=== PATIENT | female | born 1990 | race African-American/Black ===

== ENCOUNTER 2016-07-31 16:04 | Emergency (ER) | payer SELFPAY ==
[~2016-07-31] VITALS: Ht 157.5 cm; Wt 87.5 kg
[2016-07-31 16:44] LABS: BASOPHILS % (AUTO) 1 % (0-2); EOSINOPHILS # (AUTO) 0.1 10^3uL; EOSINOPHILS % (AUTO) 1 % (0-4); MEAN CORPUSCULAR HEMOGLOBIN 30.5 PG (26.0-34.0); MEAN CORPUSCULAR HGB CONC 34.7 g/dL (31.0-37.0); MEAN CORPUSCULAR VOLUME 88 FL (80-100); MEAN PLATELET VOLUME 9.6 FL (6.0-9.5); MONOCYTES # (AUTO) 0.2 X10^3; MONOCYTES % (AUTO) 5 % (3-11); NEUTROPHILS # (AUTO) 3.2 X10^3; NEUTROPHILS % (AUTO) 71 % (51-67); PLATELET COUNT 328 10^3uL (150-450); WHITE BLOOD COUNT 4.51 10^3uL (4.0-11.0)
[2016-07-31 17:08] LABS: ANION GAP 14.2 MEQ/L (3-15)
[2016-07-31 18:14] VITALS: BP 117/74
== END 2016-07-31 18:16 | disposition home or self-care (01) ==
LOC: EDUNIT# 16:04 → ED 16:06
DX: R42 Dizziness and giddiness (principal); H66.90 Otitis media, unspecified, unspecified ear
CPT/HCPCS: 36415; 80048; 84702; 85025; 87070; 87651; 99282; 99283

== ENCOUNTER 2016-08-28 18:04 | Emergency (ER) | payer SELFPAY ==
[~2016-08-28] VITALS: Ht 157.5 cm; Wt 88.2 kg
[2016-08-28] MEDS ORDERED: KETOROLAC 60 MG/2 ML (TORADOL) VIAL IM ONE (19:30)
[2016-08-28] MEDS: CEPHALEXIN 500 MG (KEFLEX) CAPSULE PO ONE ×2 (19:35→20:25)
[2016-08-28 20:35] VITALS: BP 121/76
== END 2016-08-28 20:36 | disposition home or self-care (01) ==
LOC: ED 18:06
DX: K04.7 Periapical abscess without sinus (principal)
CPT/HCPCS: 96372; 99282; J1885; 99283

== ENCOUNTER 2016-09-07 23:17 | Emergency (ER) | payer SELFPAY ==
[~2016-09-07] VITALS: Ht 157.5 cm; Wt 90.0 kg
[2016-09-07 23:27] VITALS: BP 144/102
[2016-09-07] MEDS ORDERED: ED- HYDROcodone/ACETAMINOPHEN 5MG/325MG (NORCO) 6 TABLETS/BTL PO ONE (23:35)
[2016-09-07] MEDS ORDERED: HYDROmorphone 1 MG/ML (DILAUDID) SYRINGE IM ONE (23:35)
== END 2016-09-07 23:50 | disposition home or self-care (01) ==
LOC: ED 23:18
DX: S02.5XXA Fracture of tooth (traumatic), initial encounter for closed fracture (principal); W22.8XXA Striking against or struck by other objects, initial encounter
CPT/HCPCS: 96372; 99282; J1170; 99283

== ENCOUNTER 2016-09-12 21:00 | Emergency (ER) | payer SELFPAY ==
[~2016-09-12] VITALS: Ht 157.5 cm; Wt 88.4 kg
[2016-09-12] MEDS ORDERED: BUPIVACAINE 0.5% (MARCAINE) 10 ML VIAL INJ ONE (21:25)
[2016-09-12] MEDS ORDERED: KETOROLAC 60 MG/2 ML (TORADOL) VIAL IM ONE (21:25)
[2016-09-12] MEDS ORDERED: LIDOCAINE PF 1% (XYLOCAINE) 2 ML VIAL INJ ONE (21:25)
[2016-09-12 21:50] VITALS: BP 138/97
== END 2016-09-12 21:51 | disposition home or self-care (01) ==
LOC: ED 21:02
DX: S02.5XXA Fracture of tooth (traumatic), initial encounter for closed fracture (principal); X58.XXXA Exposure to other specified factors, initial encounter
CPT/HCPCS: 64400; 96372; 99282; J1885; J2001

== ENCOUNTER 2016-09-13 22:25 | Emergency (ER) | payer SELFPAY ==
[~2016-09-13] VITALS: Ht 157.5 cm; Wt 40.9 kg
[~2016-09-13 22:25] MED LIST: CEPH-331 PO; CEPH-507 PO; CYCL10TA45 PO; FERR160T5 PO; HYDR-3702 PO; HYDR-3811 PO; MULT-954 PO; NF-TORA10 PO; TRM50T PO
[2016-09-13] MEDS ORDERED: HYDROmorphone 2 MG/ML (DILAUDID) 1 ML SYRINGE IV ONE (23:00)
[2016-09-13] MEDS ORDERED: cefTRIAXone SODIUM 1,000 MG in SODIUM CHLORIDE 50 ML IV ONE (23:00)
[2016-09-13] MEDS ORDERED: ONDANSETRON 2 MG/ML (Z0FRAN) 2 ML VIAL IV ONE (23:00)
[2016-09-13] MEDS ORDERED: methylPREDNISolone 125 MG (Solu-MEDROL) VIAL IV ONE (23:00)
[2016-09-13] MEDS ORDERED: PRED20TA PO (23:01)
[2016-09-14 00:29] VITALS: BP 131/72
== END 2016-09-14 00:05 | disposition home or self-care (01) ==
LOC: ED 22:27
DX: S02.5XXA Fracture of tooth (traumatic), initial encounter for closed fracture (principal); W22.8XXA Striking against or struck by other objects, initial encounter
CPT/HCPCS: 96365; 96375; 99283; J0696; J1170; J2405; J2930

== ENCOUNTER 2016-09-29 19:07 | Emergency (ER) | payer MEDICAID ==
[~2016-09-29] VITALS: Ht 157.5 cm; Wt 90.5 kg
[~2016-09-29 19:07] MED LIST changes: +PRED20TA PO
[2016-09-29] MEDS ORDERED: KETOROLAC 60 MG/2 ML (TORADOL) VIAL IM ONE (19:50)
[2016-09-29] MEDS ORDERED: HYDROcodone/APAP 5 MG/325 MG (NORCO) TAB PO ONE (19:50)
[2016-09-29] MEDS ORDERED: CLINDAMYCIN 150 MG (CLEOCIN) CAP PO ONE (19:50)
[2016-09-29] MEDS ORDERED: CLIN-79 PO (19:57)
[2016-09-29 20:19] VITALS: BP 137/74
== END 2016-09-29 20:10 | disposition home or self-care (01) ==
LOC: ED 19:11
DX: S02.5XXB Fracture of tooth (traumatic), initial encounter for open fracture (principal); W22.8XXA Striking against or struck by other objects, initial encounter
CPT/HCPCS: 96372; 99282; A9270; J1885; 99283

== ENCOUNTER 2016-10-10 18:52 | Emergency (ER) | payer MEDICAID ==
[~2016-10-10] VITALS: Ht 157.5 cm; Wt 90.1 kg
[~2016-10-10 18:52] MED LIST changes: +CLIN-79 PO
[2016-10-10] MEDS ORDERED: IBUP100T9 PO (19:07)
[2016-10-10 19:28] LABS: BILIRUBIN,URINE Negative (Negative); COLOR,URINE Yellow; GLUCOSE, URINE (UA) Negative (Negative); LEUKOCYTE ESTERASE ,URINE Negative (Negative); UROBILINOGEN,URINE 0.2 mg/dL (0.2-1.0)
[2016-10-10 19:31] LABS: CLARITY,URINE Slightly Cloudy
[2016-10-10 19:34] LABS: URINE CENTRIFUGED VOLUME 12 mL
[2016-10-10 19:35] LABS: RBC,URINE 50-100 /HPF
[2016-10-10 19:43] LABS: BASOPHILS % (AUTO) 0 % (0-2); EOSINOPHILS # (AUTO) 0.1 10^3uL; EOSINOPHILS % (AUTO) 1 % (0-4); LYMPHOCYTES # (AUTO) 1.3 X10^3; MEAN CORPUSCULAR HEMOGLOBIN 29.8 PG (26.0-34.0); MEAN CORPUSCULAR HGB CONC 33.9 g/dL (31.0-37.0); MEAN CORPUSCULAR VOLUME 88 FL (80-100); MEAN PLATELET VOLUME 9.2 FL (6.0-9.5); MONOCYTES # (AUTO) 0.4 X10^3; MONOCYTES % (AUTO) 6 % (3-11); NEUTROPHILS # (AUTO) 5.6 X10^3; NEUTROPHILS % (AUTO) 75 % (51-67); PLATELET COUNT 396 10^3uL (150-450); WHITE BLOOD COUNT 7.44 10^3uL (4.0-11.0)
[2016-10-10 20:00] LABS: ALBUMIN 4.8 g/dL (3.4-5.0); ANION GAP 16.7 MEQ/L (3-15); TOTAL PROTEIN 8.2 g/dL (6.4-8.5)
[2016-10-10] MEDS ORDERED: HYDR-3702 PO (21:08)
[2016-10-10] MEDS ORDERED: ED- HYDROcodone/ACETAMINOPHEN 5MG/325MG (NORCO) 6 TABLETS/BTL PO ONE (21:10)
[2016-10-10 21:22] VITALS: BP 117/85
== END 2016-10-10 21:23 | disposition home or self-care (01) ==
LOC: ED 18:53
DX: N93.8 Other specified abnormal uterine and vaginal bleeding (principal); R10.2 Pelvic and perineal pain
CPT/HCPCS: 36415; 80053; 81003; 81015; 84703; 85025; 87205; 87210; 87491; 99283; A9270